=== PATIENT | female | born 1960 | race Caucasian/White ===

== ENCOUNTER 2018-02-15 14:29 | Emergency (ER) | payer MEDICAID ==
[~2018-02-15] VITALS: Ht 160 cm; Wt 81.0 kg
[~2018-02-15 14:29] MED LIST: LANS30CA37 PO; LEVO75TA7 PO
[2018-02-15 14:34] VITALS: BP 110/79
== END 2018-02-15 15:20 | disposition home or self-care (01) ==
LOC: ER 14:29
DX: S20.369A Insect bite (nonvenomous) of unspecified front wall of thorax, initial encounter (principal); S40.862A Insect bite (nonvenomous) of left upper arm, initial encounter; S40.861A Insect bite (nonvenomous) of right upper arm, initial encounter; S80.862A Insect bite (nonvenomous), left lower leg, initial encounter; S80.861A Insect bite (nonvenomous), right lower leg, initial encounter; W57.XXXA Bitten or stung by nonvenomous insect and other nonvenomous arthropods, initial encounter; Y93.89 Activity, other specified; Y92.89 Other specified places as the place of occurrence of the external cause; Y99.8 Other external cause status
CPT/HCPCS: 99281

== ENCOUNTER 2021-07-22 15:49 | Emergency (ER) | payer SELFPAY ==
[~2021-07-22] VITALS: Ht 160 cm; Wt 80.2 kg
[2021-07-22 15:54] VITALS: BP 136/70
== END 2021-07-22 19:25 | disposition left against medical advice (07) ==
LOC: ER 15:51
DX: M79.661 Pain in right lower leg (principal); Z53.21 Procedure and treatment not carried out due to patient leaving prior to being seen by health care provider

== ENCOUNTER 2021-07-25 10:09 | Emergency (ER) | payer OTHER | END 2021-07-25 12:00 | disposition left against medical advice (07) | LOC: ER 10:10 | DX: M79.604 Pain in right leg (principal); Z53.21 Procedure and treatment not carried out due to patient leaving prior to being seen by health care provider ==

== ENCOUNTER 2023-07-15 06:36 | Day surgery (SDC) | payer MEDICARE ==
[~2023-07-15] VITALS: Ht 157.5 cm; Wt 66.4 kg
[2023-07-15] MEDS ORDERED: albumin 25% 100mL bottle x 1 IV PRN (07:30)
[2023-07-15] MEDS ORDERED: FURO40TA4 PO (07:46)
[2023-07-15] MEDS ORDERED: LEVO88TA7 PO (07:46)
[2023-07-15] MEDS ORDERED: POTA-366 PO (07:46)
[2023-07-15 07:51] VITALS: BP 112/63; PULSE 57; RESP 16; TEMP 98; O2SAT 99
[2023-07-15 08:19] VITALS: RESP 16; O2SAT 99
== END 2023-07-15 08:50 | disposition home or self-care (01) ==
LOC: SSTAY O 06:36
PROVIDERS: ATTEND Radiology Vascular & Interventional Radiology
DX: R18.8 Other ascites (principal); Z53.8 Procedure and treatment not carried out for other reasons; R14.0 Abdominal distension (gaseous); K21.9 Gastro-esophageal reflux disease without esophagitis; F41.9 Anxiety disorder, unspecified; F32.A Depression, unspecified; K74.60 Unspecified cirrhosis of liver; M47.816 Spondylosis without myelopathy or radiculopathy, lumbar region; M51.36 Other intervertebral disc degeneration, lumbar region; Z86.19 Personal history of other infectious and parasitic diseases; Z96.641 Presence of right artificial hip joint; Z79.899 Other long term (current) drug therapy
CPT/HCPCS: 76705; A6258; A6449

== ENCOUNTER 2023-12-09 07:30 | Day surgery (SDC) | payer MEDICARE, MEDICAID ==
[~2023-12-09] VITALS: Ht 157.5 cm; Wt 66.0 kg
[2023-12-09] VITALS (13 sets, daily range): BP systolic 112–146; BP diastolic 56–78; PULSE 58–65; RESP 16; TEMP 97.4–97.8; O2SAT 96–100
[~2023-12-09 07:30] MED LIST changes: +FURO40TA4 PO; -LEVO75TA7 PO; +LEVO88TA7 PO; +POTA-366 PO
[2023-12-09] MEDS ORDERED: SPIR50TA5 PO (07:53)
[2023-12-09] MEDS ORDERED: albumin 25% 100mL bottle x 1 IV PRN (07:55)
== END 2023-12-09 11:45 | disposition home or self-care (01) ==
LOC: SSTAY O 07:30
PROVIDERS: ATTEND Radiology Diagnostic Radiology
DX: R18.8 Other ascites (principal); R14.0 Abdominal distension (gaseous); K74.60 Unspecified cirrhosis of liver; K21.9 Gastro-esophageal reflux disease without esophagitis; M51.36 Other intervertebral disc degeneration, lumbar region; M47.816 Spondylosis without myelopathy or radiculopathy, lumbar region; F41.9 Anxiety disorder, unspecified; F32.A Depression, unspecified; Z86.19 Personal history of other infectious and parasitic diseases; Z96.641 Presence of right artificial hip joint; Z79.899 Other long term (current) drug therapy
CPT/HCPCS: 49083; C1729; P9047; 96360; A6258; A6449

== ENCOUNTER 2024-01-09 08:32 | Day surgery (SDC) | payer MEDICARE, MEDICAID ==
[~2024-01-09] VITALS: Ht 157.5 cm; Wt 66.5 kg
[2024-01-09] VITALS (7 sets, daily range): BP systolic 112–122; BP diastolic 62–72; PULSE 51–60; RESP 15–17; TEMP 97.3; O2SAT 99–100
[~2024-01-09 08:32] MED LIST changes: +SPIR50TA5 PO
[2024-01-09] MEDS ORDERED: LEVO112T5 PO (08:50)
[2024-01-09] MEDS: albumin 25% 100mL bottle x 1 IV PRN (11:32)
== END 2024-01-09 12:14 | disposition home or self-care (01) ==
LOC: SSTAY O 08:32
PROVIDERS: ATTEND Radiology Diagnostic Radiology
DX: R18.8 Other ascites (principal); K21.9 Gastro-esophageal reflux disease without esophagitis; F41.9 Anxiety disorder, unspecified; F32.A Depression, unspecified; K74.60 Unspecified cirrhosis of liver; M51.36 Other intervertebral disc degeneration, lumbar region; M47.816 Spondylosis without myelopathy or radiculopathy, lumbar region; Z86.19 Personal history of other infectious and parasitic diseases; Z96.641 Presence of right artificial hip joint; Z98.890 Other specified postprocedural states; Z79.899 Other long term (current) drug therapy
CPT/HCPCS: 49083; C1729; P9047; A6258; A6449

== ENCOUNTER 2024-02-12 07:02 | Day surgery (SDC) | payer MEDICARE, MEDICAID ==
[~2024-02-12] VITALS: Ht 157.5 cm; Wt 67.5 kg
[~2024-02-12 07:02] MED LIST changes: +LEVO112T5 PO; -LEVO88TA7 PO; -SPIR50TA5 PO
[2024-02-12 08:00] VITALS: RESP 15; O2SAT 96
[2024-02-12 08:47] VITALS: BP 104/57; PULSE 55; RESP 15; O2SAT 99
[2024-02-12 09:02] VITALS: BP 114/59; PULSE 54; RESP 14; O2SAT 100
[2024-02-12 09:11] VITALS: BP 115/67; PULSE 60; RESP 16; O2SAT 99
[2024-02-12] MEDS: albumin 25% 100mL bottle x 1 IV PRN (09:30)
[2024-02-12 09:31] VITALS: BP 116/77; PULSE 62; RESP 17; O2SAT 98
[2024-02-12 09:45] VITALS: BP 122/69; PULSE 57; RESP 15; O2SAT 99
== END 2024-02-12 10:15 | disposition home or self-care (01) ==
LOC: SSTAY O 07:02
PROVIDERS: ATTEND Internal Medicine Critical Care Medicine
DX: R18.8 Other ascites (principal); K74.60 Unspecified cirrhosis of liver; K21.9 Gastro-esophageal reflux disease without esophagitis; B19.20 Unspecified viral hepatitis C without hepatic coma; F41.9 Anxiety disorder, unspecified; F32.A Depression, unspecified; Z79.899 Other long term (current) drug therapy; Z98.890 Other specified postprocedural states
CPT/HCPCS: 49083; P9047; C1729

== ENCOUNTER 2024-06-26 23:28 | Emergency (ER) | payer MEDICARE, MEDICAID ==
[~2024-06-26] VITALS: Ht 157.5 cm; Wt 58.6 kg
[~2024-06-26 23:28] MED LIST changes: +FAMO40TA73 PO; -LANS30CA37 PO
[2024-06-26 23:32] VITALS: BP 117/59; PULSE 58; RESP 16; TEMP 98; O2SAT 100
[2024-06-27 00:18] LABS: BASOPHILS % (AUTO) 0.6 % (0-1); EOSINOPHILS # (AUTO) 0.1 X10'3 (0-0.9); EOSINOPHILS % (AUTO) 2.9 % (0-6); HEMOGLOBIN 12.1 g/dl (12.0-16.0); LYMPHOCYTES # (AUTO) 0.6 X10'3 (1.1-4.8); LYMPHOCYTES % (AUTO) 21.4 % (21-51); MEAN CORPUSCULAR HEMOGLOBIN 33.5 PG (27.0-31.0); MEAN CORPUSCULAR HGB CONC 34.7 g/dL (33.0-36.5); MEAN CORPUSCULAR VOLUME 96.5 FL (78-98); MONOCYTES # (AUTO) 0.4 X10'3 (0-0.9); MONOCYTES % (AUTO) 13.9 % (2-12); NEUTROPHILS # (AUTO) 1.8 X10'3 (1.8-7.7); NEUTROPHILS % (AUTO) 61.2 % (42-75); PLATELET COUNT 65 X10'3 (140-440); RED BLOOD COUNT 3.62 X10'6 (4.20-5.60); RED CELL DISTRIBUTION WIDTH 13.6 % (11.5-14.5)
[2024-06-27 00:29] LABS: ALANINE AMINOTRANSFERASE 21 U/L (12-78); ALBUMIN 2.8 G/DL (3.4-5.0); ALBUMIN/GLOBULIN RATIO 0.7 (1.1-1.5); ALKALINE PHOSPHATASE 93 IU/L (46-116); ANION GAP 7 (8-16); ASPARTATE AMINO TRANSFERASE 28 U/L (10-37); BILIRUBIN,TOTAL 2.1 MG/DL (0.1-1.0); BLOOD UREA NITROGEN 16 MG/DL (7-18); BUN/CREATININE RATIO 13.6 (10.0-20.0); CALCIUM 8.5 MG/DL (8.5-10.1); CHLORIDE 101 MMOL/L (99-107); CREATININE 1.18 MG/DL (0.40-0.90); GLUCOSE 98 MG/DL (70-104); LIPASE 51 U/L (16-77); SODIUM 134 MMOL/L (135-145); TOTAL CARBON DIOXIDE 25.6 MMOL/L (24-32); TOTAL PROTEIN 7.1 G/DL (6.4-8.2); eCRCL 37 ML/MIN; eGFR 46 ML/MIN
== END 2024-06-27 02:45 | disposition left against medical advice (07) ==
LOC: ER 23:29
DX: K42.9 Umbilical hernia without obstruction or gangrene (principal); R10.9 Unspecified abdominal pain; R11.0 Nausea; Z53.21 Procedure and treatment not carried out due to patient leaving prior to being seen by health care provider
CPT/HCPCS: 36415; 80053; 83690; 85025

== ENCOUNTER 2024-06-28 23:52 | Emergency (ER) | payer MEDICARE, MEDICAID ==
[~2024-06-28] VITALS: Ht 157.5 cm; Wt 61.0 kg
[2024-06-29 00:10] VITALS: TEMP 97.5
[2024-06-29 00:27] LABS: ALANINE AMINOTRANSFERASE 23 U/L (12-78); ALBUMIN 2.9 G/DL (3.4-5.0); ALBUMIN/GLOBULIN RATIO 0.7 (1.1-1.5); ALKALINE PHOSPHATASE 98 IU/L (46-116); ANION GAP 10 (8-16); ASPARTATE AMINO TRANSFERASE 30 U/L (10-37); BILIRUBIN,TOTAL 1.5 MG/DL (0.1-1.0); BLOOD UREA NITROGEN 16 MG/DL (7-18); BUN/CREATININE RATIO 14.5 (10.0-20.0); CALCIUM 8.5 MG/DL (8.5-10.1); CHLORIDE 100 MMOL/L (99-107); GLUCOSE 91 MG/DL (70-104); LIPASE 48 U/L (16-77); POTASSIUM 3.7 MMOL/L (3.5-5.1); SODIUM 134 MMOL/L (135-145); TOTAL CARBON DIOXIDE 24.1 MMOL/L (24-32); TOTAL PROTEIN 7.2 G/DL (6.4-8.2); eCRCL 40 ML/MIN; eGFR 50 ML/MIN
[2024-06-29] MEDS: fentaNYL/PF 50MCG/1 ML 2ML syringe IV ONE (00:45)
[2024-06-29 02:37] VITALS: BP 118/74; PULSE 85; RESP 17; O2SAT 98
[2024-06-29 05:57] LABS: WHITE BLOOD COUNT 2.6 X10'3 (4.5-11.0)
[2024-06-29 05:58] LABS: HEMATOCRIT 33.8 % (37.7-47.9); HEMOGLOBIN 11.8 G/DL (11.5-16.0); LYMPHOCYTES % 24 % (24-44); MEAN CORPUSCULAR HEMOGLOBIN 33.6 PG (27-31.2); MEAN CORPUSCULAR VOLUME 96.1 FL (81-97); MONOCYTES % 17 % (0-12); PLATELET COUNT 67 X10'3 (130-400); RED BLOOD COUNT 3.51 X10'6 (3.60-4.90); RED CELL DISTRIBUTION WIDTH 13.6 % (11-16); SEGMENTED NEUTROPHILS % 57 % (36-66)
[2024-06-29 05:59] LABS: BASOPHILS % 1 % (0-2); EOSINOPHILS # (AUTO) 0.1 X10'3 (0-0.9); EOSINOPHILS % (AUTO) 2 % (0-6); LYMPHOCYTES # (AUTO) 0.6 X10'3 (1.1-4.8); MONOCYTES # (AUTO) 0.4 X10'3 (0-0.9); NEUTROPHILS # (AUTO) 1.5 X10'3 (1.8-7.7)
== END 2024-06-29 02:40 | disposition home or self-care (01) ==
LOC: ER 23:53
DX: K42.9 Umbilical hernia without obstruction or gangrene (principal); R10.9 Unspecified abdominal pain; Z79.899 Other long term (current) drug therapy; Z79.2 Long term (current) use of antibiotics
CPT/HCPCS: 36415; 80053; 83690; 85025; 96374; 99284; J3010

== ENCOUNTER 2024-07-24 20:45 | Emergency (ER) | payer MEDICARE, MEDICAID ==
[~2024-07-24] VITALS: Ht 157.5 cm; Wt 52.5 kg
[2024-07-24] MEDS: ketorolac trometh 15mg/ml vial 15 MG/ML ML IV ONE (21:31)
[2024-07-24] MEDS: metoclopramide 5 mg/ml inj IV ONE (21:31)
[2024-07-24] MEDS: diphenhydrAMINE 50 mg/ml inj IV ONE (21:32)
[2024-07-24] MEDS: normal saline 1000ml 1,000 ML IV ONE (21:32)
[2024-07-24 21:44] LABS: HEMOGLOBIN 12.2 g/dl (12.0-16.0); MEAN CORPUSCULAR HEMOGLOBIN 32.6 PG (27.0-31.0)
[2024-07-24 21:45] LABS: BASOPHILS % (AUTO) 0.5 % (0-1); EOSINOPHILS % (AUTO) 1.3 % (0-6); HEMATOCRIT 35.4 % (35.0-45.0); LYMPHOCYTES # (AUTO) 0.3 X10'3 (1.1-4.8); LYMPHOCYTES % (AUTO) 15.8 % (21-51); MEAN CORPUSCULAR HGB CONC 34.5 g/dL (33.0-36.5); MEAN CORPUSCULAR VOLUME 94.4 FL (78-98); MEAN PLATELET VOLUME 8.6 FL (7.4-10.4); MONOCYTES # (AUTO) 0.2 X10'3 (0-0.9); MONOCYTES % (AUTO) 10.3 % (2-12); NEUTROPHILS # (AUTO) 1.6 X10'3 (1.8-7.7); NEUTROPHILS % (AUTO) 72.1 % (42-75); RED BLOOD COUNT 3.75 X10'6 (4.20-5.60); RED CELL DISTRIBUTION WIDTH 13.4 % (11.5-14.5); WHITE BLOOD COUNT 2.2 X10'3 (4.5-11.0)
[2024-07-24] MEDS ORDERED: HYDR-3686 PO (21:47)
[2024-07-24] MEDS ORDERED: SPIR100T5 PO (21:47)
[2024-07-24] MEDS ORDERED: SOFO1TAB PO (21:47)
[2024-07-24 21:59] LABS: APTT 30 SECONDS (22-32); INR 1.2 INR; PROTHROMBIN TIME 12.3 SECONDS (9.0-12.0)
[2024-07-24] MEDS: dicyclomine 10 MG capsule PO ONE (22:00)
[2024-07-24 22:02] LABS: ALANINE AMINOTRANSFERASE 22 U/L (12-78); ALBUMIN/GLOBULIN RATIO 0.7 (1.1-1.5); ALKALINE PHOSPHATASE 112 IU/L (46-116); ANION GAP 13 (8-16); ASPARTATE AMINO TRANSFERASE 32 U/L (10-37); BILIRUBIN,TOTAL 2.3 MG/DL (0.1-1.0); BLOOD UREA NITROGEN 39 MG/DL (7-18); BUN/CREATININE RATIO 28.5 (10.0-20.0); CALCIUM 8.3 MG/DL (8.5-10.1); CHLORIDE 99 MMOL/L (99-107); CREATININE 1.37 MG/DL (0.40-0.90); GLUCOSE 90 MG/DL (70-104); LIPASE 85 U/L (16-77); POTASSIUM 4.6 MMOL/L (3.5-5.1); SODIUM 130 MMOL/L (135-145); TOTAL CARBON DIOXIDE 17.9 MMOL/L (24-32); TOTAL PROTEIN 7.4 G/DL (6.4-8.2); eCRCL 32 ML/MIN; eGFR 39 ML/MIN
[2024-07-24] MEDS: ondansetron/PF 4mg/2ml inj IV ONE (22:19)
[2024-07-24 22:20] LABS: PLATELET COUNT 60 X10'3 (140-440)
[2024-07-24] MEDS: morphine 4 MG/ML inj SYRINge IV ONE ×2 (22:23→22:46)
[2024-07-24 22:28] LABS: PLATELET ESTIMATE DECREASED; TOTAL CELLS COUNTED 100
[2024-07-24] MEDS ORDERED: METO-292 PO (23:05)
[2024-07-24] MEDS ORDERED: HYDR-3973 PO (23:05)
[2024-07-24 23:28] VITALS: BP 116/78; PULSE 51; RESP 16; TEMP 98.7; O2SAT 100
== END 2024-07-24 23:31 | disposition home or self-care (01) ==
LOC: ER 20:46
DX: K46.9 Unspecified abdominal hernia without obstruction or gangrene (principal); R11.2 Nausea with vomiting, unspecified; E87.1 Hypo-osmolality and hyponatremia; Z79.899 Other long term (current) drug therapy
CPT/HCPCS: 36415; 74176; 80053; 83605; 83690; 85007; 85025; 85610; 85730; 87040; 96361; 96374; 96375; 99285; J1200; J1885; J2270; J2405; J2765; J7030

== ENCOUNTER 2024-10-30 14:03 | Emergency (ER) | payer MEDICARE, MEDICAID ==
[~2024-10-30] VITALS: Ht 157.5 cm; Wt 65.0 kg
[~2024-10-30 14:03] MED LIST changes: +HYDR-3686 PO; +METO-292 PO; +SOFO1TAB PO; +SPIR100T5 PO
[2024-10-30 14:25] VITALS: TEMP 97.2
[2024-10-30 15:13] LABS: BASOPHILS % (AUTO) 0.6 % (0-1); EOSINOPHILS % (AUTO) 2.2 % (0-6); HEMATOCRIT 36.6 % (35.0-45.0); HEMOGLOBIN 12.6 g/dl (12.0-16.0); LYMPHOCYTES # (AUTO) 0.5 X10'3 (1.1-4.8); LYMPHOCYTES % (AUTO) 21.1 % (21-51); MEAN CORPUSCULAR HEMOGLOBIN 32.1 PG (27.0-31.0); MEAN CORPUSCULAR HGB CONC 34.4 g/dL (33.0-36.5); MEAN CORPUSCULAR VOLUME 93.4 FL (78-98); MEAN PLATELET VOLUME 7.7 FL (7.4-10.4); MONOCYTES # (AUTO) 0.3 X10'3 (0-0.9); MONOCYTES % (AUTO) 13.6 % (2-12); NEUTROPHILS # (AUTO) 1.4 X10'3 (1.8-7.7); NEUTROPHILS % (AUTO) 62.5 % (42-75); PLATELET COUNT 74 X10'3 (140-440); RED BLOOD COUNT 3.92 X10'6 (4.20-5.60); RED CELL DISTRIBUTION WIDTH 14.1 % (11.5-14.5); WHITE BLOOD COUNT 2.2 X10'3 (4.5-11.0)
[2024-10-30 15:30] LABS: PLATELET ESTIMATE DECREASED; TOTAL CELLS COUNTED 100
[2024-10-30 15:31] LABS: ELLIPTOCYTES FEW
[2024-10-30] MEDS: morphine 4 MG/ML inj SYRINge IV ONE ×2 (15:43→16:29)
[2024-10-30] MEDS: ondansetron/PF 4mg/2ml inj IV ONE (15:43)
[2024-10-30 16:29] LABS: ALANINE AMINOTRANSFERASE 16 U/L (12-78); ALBUMIN 2.7 G/DL (3.4-5.0); ALBUMIN/GLOBULIN RATIO 0.7 (1.1-1.5); ALKALINE PHOSPHATASE 90 IU/L (46-116); ANION GAP 13 (8-16); ASPARTATE AMINO TRANSFERASE 26 U/L (10-37); BILIRUBIN,TOTAL 2.6 MG/DL (0.1-1.0); BLOOD UREA NITROGEN 12 MG/DL (7-18); CALCIUM 8.6 MG/DL (8.5-10.1); CHLORIDE 108 MMOL/L (99-107); CREATININE 0.92 MG/DL (0.40-0.90); GLUCOSE 100 MG/DL (70-104); POTASSIUM 3.2 MMOL/L (3.5-5.1); SODIUM 141 MMOL/L (135-145); TOTAL CARBON DIOXIDE 19.7 MMOL/L (24-32); TOTAL PROTEIN 6.8 G/DL (6.4-8.2); eCRCL 48 ML/MIN; eGFR 61 ML/MIN
[2024-10-30 16:59] LABS: LIPASE > 375 U/L (16-77)
[2024-10-30] MEDS ORDERED: FURO-150 PO (17:07)
[2024-10-30] MEDS ORDERED: HYDR-3965 PO (17:10)
[2024-10-30 17:26] VITALS: BP 144/78; PULSE 62; RESP 20; O2SAT 100
== END 2024-10-30 17:29 | disposition home or self-care (01) ==
LOC: ER 14:04
DX: R18.8 Other ascites (principal); Z79.899 Other long term (current) drug therapy; Z98.890 Other specified postprocedural states
CPT/HCPCS: 36415; 74176; 80053; 83690; 85007; 85025; 93005; 96374; 96375; 96376; 99285; J2270; J2405; J7030